=== PATIENT | female | born 1995 | race Hispanic/Latino ===

== ENCOUNTER 2017-03-30 09:43 | Emergency (ER) | payer OTHER ==
[~2017-03-30] VITALS: Ht 167.6 cm; Wt 63.0 kg
[2017-03-30 09:44] VITALS: BP 113/65
[2017-03-30] MEDS ORDERED: RISP2TAB32 PO (10:02)
[2017-03-30] MEDS ORDERED: PROZ10CA7 PO (10:02)
[2017-03-30] MEDS ORDERED: blood thinner PO (10:02)
[2017-03-30] MEDS ORDERED: birth control pill PO (10:02)
== END 2017-03-30 10:51 | disposition home or self-care (01) ==
LOC: M ED 10:40
DX: Z20.3 Contact with and (suspected) exposure to rabies (principal); Z23 Encounter for immunization; I25.2 Old myocardial infarction; Z79.899 Other long term (current) drug therapy

== ENCOUNTER → 2017-10-15 | Outpatient (CLI) | payer OTHER ==
[2017-10-17 10:17] LABS: HIV 1&2 SCREEN CENTAUR NEGATIVE (NEGATIVE)
[2017-10-17 15:01] LABS: HEPATITIS B SURFACE ANTIGEN NEGATIVE (NEGATIVE)
[2017-10-17 15:20] LABS: HEPATITIS B CORE ANTIBODY IGM NEGATIVE (NEGATIVE)
[2017-10-17 15:20] LABS: HEPATITIS C VIRUS ABY INDEX 0.1 INDEX (<0.8)
[2017-10-17 15:22] LABS: HEPATITIS A ANTIBODY IGM NEGATIVE (NEGATIVE)
== END ==
LOC: M SMT 14:12
DX: Z11.3 Encounter for screening for infections with a predominantly sexual mode of transmission (principal)

== ENCOUNTER 2017-10-18 08:48 | Emergency (ER) | payer OTHER | END 2017-10-18 09:41 | disposition home or self-care (01) | LOC: M ED 08:48 | DX: H00.015 Hordeolum externum left lower eyelid (principal); Z79.3 Long term (current) use of hormonal contraceptives; Z79.899 Other long term (current) drug therapy | CPT/HCPCS: 99282 ==

== ENCOUNTER 2019-03-29 09:52 | Emergency (ER) | payer OTHER ==
[~2019-03-29] VITALS: Ht 167.6 cm; Wt 98.2 kg
[~2019-03-29 09:52] MED LIST: CLEO300C2 PO; PROZ10CA7 PO; RISP2TAB32 PO; birth control pill PO; blood thinner PO
[2019-03-29] MEDS ORDERED: BUPR1TAB52 (10:03)
[2019-03-29] MEDS ORDERED: FAMOTIDINE 20 MG TAB PO ONE (11:30)
[2019-03-29] MEDS ORDERED: diphenhydrAMINE 50 MG CAP PO ONE (11:30)
[2019-03-29] MEDS ORDERED: predniSONE 20 MG TAB PO ONE (11:30)
[2019-03-29] MEDS ORDERED: BENA25CA4 PO (11:35)
[2019-03-29] MEDS ORDERED: PRED20TA PO (11:35)
[2019-03-29] MEDS ORDERED: FAMO40TA3 PO (11:35)
[2019-03-29 11:51] VITALS: BP 117/73
== END 2019-03-29 11:57 | disposition home or self-care (01) ==
LOC: M ED 09:52
DX: S60.561A Insect bite (nonvenomous) of right hand, initial encounter (principal); Y92.9 Unspecified place or not applicable; Y93.9 Activity, unspecified; Z91.038 Other insect allergy status